=== PATIENT | male | born 1985 | race African-American/Black ===

== ENCOUNTER 2016-06-11 12:46 | Emergency (ER) | payer MEDICAID ==
[~2016-06-11] VITALS: Ht 175.3 cm; Wt 90.7 kg
[~2016-06-11 12:46] MED LIST: ALPR0.255 PO; LEVE500T6 PO; Rivaroxaban PO
[2016-06-11] MEDS ORDERED: ALBUTEROL FS 2.5 MG/3 ML VIAL.NEB ONE (13:22)
[2016-06-11] MEDS ORDERED: IPRATROPIUM NEB FS 0.5 MG/2.5 ML AMPUL.NEB ONE (13:22)
[2016-06-11] MEDS ORDERED: ALBUTEROL FS 2.5 MG/3 ML VIAL.NEB NEB ONE (13:30)
[2016-06-11] MEDS ORDERED: IPRATROPIUM NEB FS 0.5 MG/2.5 ML AMPUL.NEB NEB ONE (13:30)
[2016-06-11] MEDS ORDERED: predniSONE 20 MG TABLET PO ONE (13:30)
[2016-06-11 13:47] LABS: BASOPHILS # (AUTO) 0.1 /CMM (0.0-0.2); DIFF TOTAL % 100 %; EOSINOPHILS # (AUTO) 0.1 /CMM (0.0-0.7); HEMATOCRIT 46 % (39-51); HEMOGLOBIN 15.3 g/dL (13.5-17.5); LYMPHOCYTES # (AUTO) 1.9 /CMM (0.8-4.8); MEAN CORPUSCULAR HEMOGLOBIN 28 PG (26.0-33.0); MEAN CORPUSCULAR HGB CONC 33 g/dl (31.0-36.0); MEAN CORPUSCULAR VOLUME 84 fL (80-96); MONOCYTES # (AUTO) 0.4 /CMM (0.1-1.30); MONOCYTES % (AUTO) 6.9 % (2.0-12.0); NEUTROPHILS # (AUTO) 3.7 /CMM (1.8-8.9); NEUTROPHILS % (AUTO) 60.1 % (43.0-81.0); PLATELET COUNT (AUTO) 174 /CMM (150-450); RED BLOOD CELL COUNT(AUTO) 5.49 MIL/uL (4.5-6.0); WHITE BLOOD COUNT (AUTO) 6.2 K/uL (4.3-11.0)
[2016-06-11] MEDS ORDERED: predniSONE 20 MG TABLET ONE (13:50)
[2016-06-11 13:58] LABS: ANION GAP 11 (5-14); CARBON DIOXIDE 30 mmol/L (21-32); CHLORIDE 106 mmol/L (98-107); GFR 107 mL/min (>60); GLUCOSE 103 mg/dL (74-106); POTASSIUM 4.3 mmol/L (3.5-5.1); SODIUM SERUM 143 mmol/L (136-145); UREA NITROGEN, BLOOD 13 mg/dL (7-18)
[2016-06-11 14:05] LABS: TROPONIN I < 0.017 ng/mL (0.00-0.056)
[2016-06-11 14:57] VITALS: BP 124/89
== END 2016-06-11 14:58 | disposition home or self-care (01) ==
LOC: ER 12:48
DX: R07.89 Other chest pain (principal); J45.901 Unspecified asthma with (acute) exacerbation; R56.9 Unspecified convulsions; F41.9 Anxiety disorder, unspecified
CPT/HCPCS: 36415; 71010; 80048; 84484; 85025; 94640; 99285; A4606 ×3; J7512; Z7610 ×2

== ENCOUNTER 2017-04-15 00:27 | Emergency (ER) | payer MEDICAID, OTHER ==
[~2017-04-15] VITALS: Ht 185.4 cm; Wt 113.4 kg
[~2017-04-15 00:27] MED LIST changes: -LEVE500T6 PO; +LEVE500T9 PO
--- NOTE | 2017-04-15 00:45 | NUR ---
PT AMBULATORY TO ER BED 8, PT C/O SOB X 1 HOUR AND C/O MIDSTERNAL CP X 1 HOUR. VSS/RESP EVEN UNLABORED/NAD NOTED/SKIN WARM AND DRY/DENIES N/V. PT AOX4.
[2017-04-15] MEDS ORDERED: ACETAMINOPHEN ES 500 MG TABLET ONE (01:00)
[2017-04-15] MEDS ORDERED: ACETAMINOPHEN ES 500 MG TABLET PO ONE (01:00)
[2017-04-15 02:19] VITALS: BP 132/88
== END 2017-04-15 02:20 | disposition home or self-care (01) ==
LOC: ER 00:32
DX: F41.9 Anxiety disorder, unspecified (principal); T50.905A Adverse effect of unspecified drugs, medicaments and biological substances, initial encounter; J45.909 Unspecified asthma, uncomplicated; Z79.01 Long term (current) use of anticoagulants; Y92.89 Other specified places as the place of occurrence of the external cause
CPT/HCPCS: 71010; 93005; 99284; A4606; J7030; Z7610

== ENCOUNTER 2017-05-31 20:14 | Emergency (ER) | payer MEDICAID ==
[~2017-05-31] VITALS: Ht 185.4 cm; Wt 113.4 kg
[2017-05-31 20:26] VITALS: BP 124/72
== END 2017-05-31 20:54 | disposition home or self-care (01) ==
LOC: ER 20:20
DX: L25.8 Unspecified contact dermatitis due to other agents (principal); J45.909 Unspecified asthma, uncomplicated
CPT/HCPCS: 99283; A4606; Z7610

== ENCOUNTER 2017-07-29 16:01 | Emergency (ER) | payer MEDICAID ==
[~2017-07-29] VITALS: Ht 185.4 cm; Wt 108.9 kg
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
--- NOTE | 2017-07-29 16:30 | NUR ---
NEW IV STARTED ON LAC, 20 G. BLOOD DRAWN AND SENT TO LAB. EKG COMPLETED AT BEDSIDE WELL.
[2017-07-29 16:32] LABS: BASOPHILS # (AUTO) 0.2 /CMM (0.0-0.2); BASOPHILS % (AUTO) 2.6 % (0.0-2.0); EOSINOPHILS # (AUTO) 0.2 /CMM (0.0-0.7); EOSINOPHILS % (AUTO) 2.7 % (0.0-6.0); HEMATOCRIT 45 % (39-51); LYMPHOCYTES # (AUTO) 2.1 /CMM (0.8-4.8); LYMPHOCYTES % (AUTO) 28.6 % (20.0-44.0); MEAN CORPUSCULAR HEMOGLOBIN 28 PG (26.0-33.0); MEAN CORPUSCULAR HGB CONC 33 g/dl (31.0-36.0); MEAN CORPUSCULAR VOLUME 85 fL (80-96); MONOCYTES # (AUTO) 0.7 /CMM (0.1-1.30); MONOCYTES % (AUTO) 9.4 % (2.0-12.0); NEUTROPHILS # (AUTO) 4.2 /CMM (1.8-8.9); NEUTROPHILS % (AUTO) 56.7 % (43.0-81.0); PLATELET COUNT (AUTO) 172 /CMM (150-450); RDW COEFFICIENT OF VARIATION 13.7 (11.5-15.0); RED BLOOD CELL COUNT(AUTO) 5.31 MIL/uL (4.5-6.0); WHITE BLOOD COUNT (AUTO) 7.4 K/uL (4.3-11.0)
[2017-07-29 16:42] LABS: CALCIUM, SERUM 9.1 mg/dL (8.5-10.1); CARBON DIOXIDE 31 mmol/L (21-32); CHLORIDE 105 mmol/L (98-107); GLUCOSE 83 mg/dL (74-106); POTASSIUM 3.5 mmol/L (3.5-5.1); SODIUM SERUM 142 mmol/L (136-145); UREA NITROGEN, BLOOD 13 mg/dL (7-18)
[2017-07-29 16:50] LABS: TROPONIN I < 0.017 ng/mL (0.00-0.056)
[2017-07-29 16:54] LABS: B-TYPE NATRIURETIC PEPTIDE 152 PG/ML (0-125)
[2017-07-29] MEDS ORDERED: ACETAMINOPHEN ES 500 MG TABLET ONE (17:20)
[2017-07-29] MEDS ORDERED: ACETAMINOPHEN ES 500 MG TABLET PO ONE (17:30)
[2017-07-29 17:31] VITALS: BP 126/74
--- NOTE | 2017-07-29 17:55 | NUR ---
IV removed. Catheter intact and site benign. Pressure and 4x4 applied to site. No bleeding noted. Patient discharged to home in stable condition. Written and verbal after care instructions given. Patient verbalizes understanding of instruction.
== END 2017-07-29 17:55 | disposition home or self-care (01) ==
LOC: ER 16:03
DX: R07.9 Chest pain, unspecified (principal); F41.9 Anxiety disorder, unspecified; G40.909 Epilepsy, unspecified, not intractable, without status epilepticus; J45.909 Unspecified asthma, uncomplicated; Q21.0 Ventricular septal defect
CPT/HCPCS: 36415; 71045; 80048; 83880; 84484; 85025; 85378; 93005; 99285; A4606; Z7610

== ENCOUNTER 2017-09-04 19:26 | Emergency (ER) | payer MEDICAID, OTHER ==
[~2017-09-04] VITALS: Ht 177.8 cm; Wt 99.8 kg
[2017-09-04 21:15] VITALS: BP 134/79
--- NOTE | 2017-09-04 22:50 | NUR ---
BEDSIDE WITH PT.
== END 2017-09-04 23:24 | disposition home or self-care (01) ==
LOC: ER 19:29
DX: N48.1 Balanitis (principal); J45.909 Unspecified asthma, uncomplicated; G40.909 Epilepsy, unspecified, not intractable, without status epilepticus
CPT/HCPCS: 99282; A4606; Z7610

== ENCOUNTER 2017-11-03 22:41 | Emergency (ER) | payer MEDICAID, OTHER ==
[~2017-11-03] VITALS: Ht 185.4 cm; Wt 113.4 kg
[2017-11-03 22:47] VITALS: BP 118/80
[2017-11-04] MEDS ORDERED: DEXAMETHASONE SOD PHOSPHATE 4 MG/ML VIAL IM ONE
[2017-11-04] MEDS ORDERED: ALBUTEROL FS 2.5 MG/0.5 ML VIAL.NEB NEB ONE
[2017-11-04] MEDS ORDERED: IPRATROPIUM NEB FS 0.5 MG/2.5 ML AMPUL.NEB ONE (00:13)
[2017-11-04] MEDS ORDERED: ALBUTEROL FS 2.5 MG/0.5 ML VIAL.NEB ONE (00:13)
[2017-11-04] MEDS ORDERED: DEXAMETHASONE SOD PHOSPHATE 10 MG/ML VIAL ONE (00:29)
== END 2017-11-04 01:00 | disposition home or self-care (01) ==
LOC: ER 22:44
DX: J45.909 Unspecified asthma, uncomplicated (principal); J02.9 Acute pharyngitis, unspecified; F41.9 Anxiety disorder, unspecified; G40.909 Epilepsy, unspecified, not intractable, without status epilepticus; Z98.890 Other specified postprocedural states
CPT/HCPCS: 71045-TC; A4606; J1100; Z7610

== ENCOUNTER 2018-01-29 22:24 | Emergency (ER) | payer MEDICAID ==
[~2018-01-29] VITALS: Ht 193 cm; Wt 124.3 kg
[2018-01-29 22:27] VITALS: BP 120/86
[2018-01-29] MEDS ORDERED: IBUPROFEN 600 MG TABLET PO ONE ×2 (22:51→23:00)
== END 2018-01-29 23:20 | disposition home or self-care (01) ==
LOC: ER 22:25
DX: J03.90 Acute tonsillitis, unspecified (principal); J45.909 Unspecified asthma, uncomplicated; G40.909 Epilepsy, unspecified, not intractable, without status epilepticus; F41.9 Anxiety disorder, unspecified; Z98.890 Other specified postprocedural states; Z79.899 Other long term (current) drug therapy
CPT/HCPCS: 71045-TC; 86403-TC; 87070-TC; A4606; Z7610

== ENCOUNTER 2018-06-23 23:02 | Emergency (ER) | payer MEDICAID ==
[~2018-06-23] VITALS: Ht 185.4 cm; Wt 113.4 kg
--- NOTE | 2018-06-23 23:08 | NUR ---
BIB[facility]PARENTS C/O CHEST TIGHTNESS/SOB X 9 HOURS. PT STATES HE HAS ANXIETY. NOTED VERY ANXIOUS. A/OX4 AND ABLE TO VERBALIZE NEEDS. NOTED WITH NAUSEA AND VOMIT AT BEDSIDE. PUT ON MONITOR. VSS WNL. WAITING FOR MD PEREZ.
[2018-06-24] MEDS ORDERED: IV NS 0.9% 1,000 ML BAG IV ONE
[2018-06-24] MEDS ORDERED: ALBUTEROL FS 2.5 MG/3 ML VIAL.NEB NEB ONE
[2018-06-24] MEDS ORDERED: ONDANSETRON HCL/PF 4 MG/2 ML VIAL IVP ONE
[2018-06-24] MEDS ORDERED: IPRATROPIUM NEB FS 0.5 MG/2.5 ML AMPUL.NEB NEB ONE
--- NOTE | 2018-06-24 | NUR ---
ADDENDUM: INTRAVENOUS END TIME: NS 1 LITER WIDE OPEN; STRT TIME: 0000 AM; EMD TIME 0100 AM; PIV # 18 RAC
[2018-06-24 00:09] LABS: BASOPHILS % (AUTO) 0.5 % (0.0-2.0); EOSINOPHILS % (AUTO) 3.2 % (0.0-6.0); HEMATOCRIT 47 % (39-51); HEMOGLOBIN 15.7 g/dL (13.5-17.5); LYMPHOCYTES # (AUTO) 3.3 /CMM (0.8-4.8); LYMPHOCYTES % (AUTO) 42.2 % (20.0-44.0); MEAN CORPUSCULAR HGB CONC 33 g/dl (31.0-36.0); MEAN CORPUSCULAR VOLUME 85 fL (80-96); MONOCYTES # (AUTO) 0.6 /CMM (0.1-1.30); MONOCYTES % (AUTO) 7.7 % (2.0-12.0); NEUTROPHILS # (AUTO) 3.6 /CMM (1.8-8.9); NEUTROPHILS % (AUTO) 46.4 % (43.0-81.0); PLATELET COUNT (AUTO) 168 /CMM (150-450); RED BLOOD CELL COUNT(AUTO) 5.52 MIL/uL (4.5-6.0); WHITE BLOOD COUNT (AUTO) 7.8 K/uL (4.3-11.0)
[2018-06-24] MEDS ORDERED: ONDANSETRON HCL/PF 4 MG/2 ML VIAL ONE (00:20)
[2018-06-24] MEDS ORDERED: ALBUTEROL FS 2.5 MG/3 ML VIAL.NEB ONE (00:35)
[2018-06-24] MEDS ORDERED: IPRATROPIUM NEB FS 0.5 MG/2.5 ML AMPUL.NEB ONE (00:35)
[2018-06-24 01:02] LABS: ALANINE AMINOTRANSFERASE 33 U/L (12-78); ALBUMIN 3.7 g/dL (3.4-5.0); ALKALINE PHOSPHATASE 60 U/L (46-116); ASPARTATE AMINOTRANSFERASE 22 U/L (15-37); BILIRUBIN,DIRECT 0.1 mg/dL (0.0-0.2); BILIRUBIN,TOTAL 0.7 mg/dL (0.2-1.0); CARBON DIOXIDE 24 mmol/L (21-32); CHLORIDE 108 mmol/L (98-107); CREATININE 0.9 mg/dL (0.6-1.3); GLUCOSE 110 mg/dL (74-106); POTASSIUM 3.7 mmol/L (3.5-5.1); SODIUM SERUM 143 mmol/L (136-145); TOTAL PROTEIN, SERUM 7.6 g/dL (6.4-8.2); UREA NITROGEN, BLOOD 17 mg/dL (7-18)
[2018-06-24] MEDS ORDERED: MECLIZINE HCL 12.5 MG TABLET PO ONE (02:00)
[2018-06-24] MEDS ORDERED: MECLIZINE HCL 25 MG TABLET ONE (02:18)
--- NOTE | 2018-06-24 03:00 | NUR ---
THE PATIENT WAS ABLE TO AMBULATE; STEADY GAIT; NO DIZZINESS NOTED
--- NOTE | 2018-06-24 03:15 | NUR ---
IV removed. Catheter intact and site benign. Pressure and 4x4 applied to site. No bleeding noted.
--- NOTE | 2018-06-24 03:19 | NUR ---
Patient discharged to home in stable condition. Written and verbal after care instructions given. Patient verbalizes understanding of instruction.
[2018-06-24 03:21] VITALS: BP 129/85
== END 2018-06-24 03:22 | disposition home or self-care (01) ==
LOC: ER 23:06
DX: J45.901 Unspecified asthma with (acute) exacerbation (principal); R42 Dizziness and giddiness; F41.9 Anxiety disorder, unspecified; G40.909 Epilepsy, unspecified, not intractable, without status epilepticus; Q21.0 Ventricular septal defect; Z98.890 Other specified postprocedural states
CPT/HCPCS: 36415; 71045-TC; 80048-TC; 80076-TC; 84484-TC; 85025-TC; J2405; J7030; J8597

== ENCOUNTER 2019-01-06 14:27 | Emergency (ER) | payer MEDICAID ==
[~2019-01-06] VITALS: Ht 185.4 cm; Wt 117.9 kg
--- NOTE | 2019-01-06 14:53 | NUR ---
RECEIVED PT IN ROOM ER #2, PT IS A/Ox4, PT'S GRANDMOTHER STATED PT HAD SEIZURE AT HOME, VSS STABLE, CONTINUE TO MONTIOR
[2019-01-06 15:28] LABS: BASOPHILS # (AUTO) 0.1 /CMM (0.0-0.2); BASOPHILS % (AUTO) 0.5 % (0.0-2.0); EOSINOPHILS % (AUTO) 0.3 % (0.0-6.0); HEMATOCRIT 43 % (39-51); HEMOGLOBIN 14.2 g/dL (13.5-17.5); LYMPHOCYTES # (AUTO) 0.6 /CMM (0.8-4.8); MEAN CORPUSCULAR HGB CONC 33 g/dl (31.0-36.0); MEAN CORPUSCULAR VOLUME 86 fL (80-96); MONOCYTES # (AUTO) 0.9 /CMM (0.1-1.30); MONOCYTES % (AUTO) 8.2 % (2.0-12.0); NEUTROPHILS # (AUTO) 9.5 /CMM (1.8-8.9); PLATELET COUNT (AUTO) 159 /CMM (150-450); RED BLOOD CELL COUNT(AUTO) 4.97 MIL/uL (4.5-6.0); WHITE BLOOD COUNT (AUTO) 11.1 K/uL (4.3-11.0)
[2019-01-06] MEDS ORDERED: IV NS 0.9% 1,000 ML BAG IV ONE (15:30)
[2019-01-06 15:54] LABS: CALCIUM, SERUM 8.9 mg/dL (8.5-10.1); CREATININE 1.1 mg/dL (0.6-1.3); POTASSIUM 4.1 mmol/L (3.5-5.1)
[2019-01-06 16:02] LABS: ALBUMIN 3.5 g/dL (3.4-5.0); BILIRUBIN,DIRECT 0.1 mg/dL (0.0-0.2); TOTAL PROTEIN, SERUM 7.1 g/dL (6.4-8.2)
--- NOTE | 2019-01-06 16:48 | NUR ---
Patient discharged to home in stable condition. Written and verbal after care instructions given. Patient verbalizes understanding of instruction.IV removed. Pressure and 4x4 applied to site. No bleeding noted.PT left the ER ambulatory with a steady gait.
[2019-01-06 16:51] VITALS: BP 120/61
== END 2019-01-06 16:40 | disposition home or self-care (01) ==
LOC: ER 14:30
DX: R55 Syncope and collapse (principal); E86.0 Dehydration; J45.909 Unspecified asthma, uncomplicated; E78.00 Pure hypercholesterolemia, unspecified; F41.9 Anxiety disorder, unspecified; Z98.890 Other specified postprocedural states; Z79.899 Other long term (current) drug therapy
CPT/HCPCS: 36415; 80048; 80076; 82550; 82962; 85025; 96360; 99283; J7030

== ENCOUNTER 2019-05-10 14:08 | Emergency (ER) | payer MEDICAID ==
[~2019-05-10] VITALS: Ht 185.4 cm; Wt 127.0 kg
[2019-05-10 14:43] VITALS: BP 134/74
== END 2019-05-10 15:27 | disposition home or self-care (01) ==
LOC: ER 14:11
DX: S80.211A Abrasion, right knee, initial encounter (principal); J45.909 Unspecified asthma, uncomplicated; F41.9 Anxiety disorder, unspecified; G40.909 Epilepsy, unspecified, not intractable, without status epilepticus; Z98.890 Other specified postprocedural states; Z79.899 Other long term (current) drug therapy; W19.XXXA Unspecified fall, initial encounter; Y93.01 Activity, walking, marching and hiking; Y92.89 Other specified places as the place of occurrence of the external cause; Y99.8 Other external cause status
CPT/HCPCS: 73564-TC

== ENCOUNTER 2021-02-20 22:12 | Emergency (ER) | payer MEDICAID ==
[~2021-02-20] VITALS: Ht 185.4 cm; Wt 104.3 kg
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
[2021-02-20] MEDS ORDERED: KETOROLAC TROMETHAMINE INJ 30 MG/ML VIAL ONE (22:40)
[2021-02-20] MEDS ORDERED: CYCLOBENZAPRINE 10 MG TABLET ONE (22:40)
[2021-02-20] MEDS ORDERED: KETOROLAC TROMETHAMINE INJ 30 MG/ML VIAL IM ONE (23:00)
[2021-02-20] MEDS ORDERED: CYCLOBENZAPRINE 10 MG TABLET PO ONE (23:00)
[2021-02-21] MEDS ORDERED: CYCL5TAB PO (00:24)
[2021-02-21 00:51] VITALS: BP 124/76
--- NOTE | 2021-02-21 00:51 | NUR ---
Patient discharged to home in stable condition. Written and verbal after care instructions given. Patient verbalizes understanding of instruction. Ambulated without difficulty.
== END 2021-02-21 00:52 | disposition home or self-care (01) ==
LOC: ER 22:14
DX: S93.492A Sprain of other ligament of left ankle, initial encounter (principal); S29.012A Strain of muscle and tendon of back wall of thorax, initial encounter; S39.012A Strain of muscle, fascia and tendon of lower back, initial encounter; J45.909 Unspecified asthma, uncomplicated; F41.9 Anxiety disorder, unspecified; G40.909 Epilepsy, unspecified, not intractable, without status epilepticus; Z98.890 Other specified postprocedural states; Z79.899 Other long term (current) drug therapy; V49.69XA Unspecified car occupant injured in collision with other motor vehicles in traffic accident, initial encounter; Y93.89 Activity, other specified; Y92.413 State road as the place of occurrence of the external cause; Y99.8 Other external cause status
CPT/HCPCS: 72128; 72131; 73610; 96372; 99285; J1885

== ENCOUNTER 2021-03-10 13:19 | Emergency (ER) | payer MEDICAID ==
[~2021-03-10] VITALS: Ht 185.4 cm; Wt 117.9 kg
[~2021-03-10 13:19] MED LIST changes: +CYCL5TAB PO
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
--- NOTE | 2021-03-10 13:47 | NUR ---
FAMILY AT BEDSIDE
[2021-03-10] MEDS ORDERED: CYCLOBENZAPRINE 10 MG TABLET ONE (14:36)
[2021-03-10] MEDS ORDERED: KETOROLAC TROMETHAMINE INJ 30 MG/ML VIAL ONE (14:36)
[2021-03-10] MEDS: KETOROLAC TROMETHAMINE INJ 30 MG/ML VIAL IM ONE (14:41)
[2021-03-10] MEDS: CYCLOBENZAPRINE 10 MG TABLET PO ONE (14:41)
--- NOTE | 2021-03-10 15:39 | NUR ---
DR PETERS AT BEDSIDE
[2021-03-10] MEDS ORDERED: CYCL5TAB PO (15:44)
[2021-03-10] MEDS ORDERED: IBUP-1957 PO (15:44)
--- NOTE | 2021-03-10 15:52 | NUR ---
Patient discharged to home in stable condition. Written and verbal after care instructions given. Patient verbalizes understanding of instruction.
[2021-03-10 15:53] VITALS: BP 136/89
== END 2021-03-10 15:53 | disposition home or self-care (01) ==
LOC: ER 13:25
DX: S29.012A Strain of muscle and tendon of back wall of thorax, initial encounter (principal); S39.012A Strain of muscle, fascia and tendon of lower back, initial encounter; J45.909 Unspecified asthma, uncomplicated; F41.9 Anxiety disorder, unspecified; G40.909 Epilepsy, unspecified, not intractable, without status epilepticus; Z98.890 Other specified postprocedural states; Z79.899 Other long term (current) drug therapy; X58.XXXA Exposure to other specified factors, initial encounter; Y93.89 Activity, other specified; Y92.89 Other specified places as the place of occurrence of the external cause; Y99.8 Other external cause status
CPT/HCPCS: 96372; 99283; J1885

== ENCOUNTER 2023-10-11 14:53 | Emergency (ER) | payer MEDICAID ==
[~2023-10-11] VITALS: Ht 185.4 cm; Wt 136.1 kg
[~2023-10-11 14:53] MED LIST changes: +IBUP-1957 PO
[2023-10-11 15:07] VITALS: TEMP 98.2
[2023-10-11] MEDS: IV NS 0.9% 1,000 ML BAG IV ONE (15:35)
[2023-10-11] MEDS ORDERED: diphenhydrAMINE HCL 50 MG/ML VIAL ONE (15:37)
[2023-10-11] MEDS ORDERED: METOCLOPRAMIDE HCL 10 MG/2 ML VIAL ONE (15:37)
[2023-10-11] MEDS ORDERED: KETOROLAC TROMETHAMINE 15 MG/ML VIAL ONE (15:37)
[2023-10-11] MEDS ORDERED: ACETAMINOPHEN ES 500 MG TABLET ONE (15:37)
[2023-10-11] MEDS: diphenhydrAMINE HCL 50 MG/ML VIAL IV ONE (15:38)
[2023-10-11] MEDS: METOCLOPRAMIDE HCL 10 MG/2 ML VIAL IV ONE (15:38)
[2023-10-11] MEDS: KETOROLAC TROMETHAMINE 15 MG/ML VIAL IV ONE (15:39)
[2023-10-11] MEDS: ACETAMINOPHEN ES 500 MG TABLET PO ONE (15:39)
[2023-10-11 16:55] VITALS: BP 127/88; O2SAT 99
== END 2023-10-11 16:56 | disposition home or self-care (01) ==
LOC: ER 15:04
DX: G43.809 Other migraine, not intractable, without status migrainosus (principal); G40.909 Epilepsy, unspecified, not intractable, without status epilepticus; J45.909 Unspecified asthma, uncomplicated; F41.9 Anxiety disorder, unspecified; Z86.79 Personal history of other diseases of the circulatory system
CPT/HCPCS: 99284; 96374; 96375 ×2; J1200; J2765; J7030; J1885

== ENCOUNTER 2024-05-04 16:35 | Emergency (ER) | payer MEDICAID ==
[~2024-05-04] VITALS: Ht 185.4 cm; Wt 133.8 kg
[2024-05-04 16:36] VITALS: TEMP 98.4
[2024-05-04] MEDS ORDERED: IBUPROFEN 600 MG TABLET ONE (17:12)
[2024-05-04] MEDS: IBUPROFEN 600 MG TABLET PO ONE (17:14)
[2024-05-04] MEDS ORDERED: IBUP-1953 PO (17:37)
[2024-05-04 18:15] VITALS: BP 118/70; O2SAT 100
== END 2024-05-04 18:15 | disposition home or self-care (01) ==
LOC: ER 16:40
DX: S80.01XA Contusion of right knee, initial encounter (principal); F41.9 Anxiety disorder, unspecified; J45.909 Unspecified asthma, uncomplicated; Z79.1 Long term (current) use of non-steroidal anti-inflammatories (NSAID); Z87.820 Personal history of traumatic brain injury; W01.198A Fall on same level from slipping, tripping and stumbling with subsequent striking against other object, initial encounter; Y93.89 Activity, other specified; Y92.89 Other specified places as the place of occurrence of the external cause; Y99.8 Other external cause status
CPT/HCPCS: 73562

== ENCOUNTER 2024-07-22 07:22 | Emergency (ER) | payer MEDICAID ==
[~2024-07-22] VITALS: Ht 185.4 cm; Wt 136.1 kg
[~2024-07-22 07:22] MED LIST changes: +IBUP-1953 PO
[2024-07-22] MEDS ORDERED: NAPR-1164 PO (08:00)
[2024-07-22] MEDS ORDERED: KETOROLAC TROMETHAMINE 15 MG/ML VIAL ONE (08:08)
[2024-07-22] MEDS: KETOROLAC TROMETHAMINE 15 MG/ML VIAL IM ONE (08:14)
[2024-07-22 08:40] VITALS: BP 122/70; TEMP 98.6; O2SAT 96
== END 2024-07-22 08:41 | disposition home or self-care (01) ==
LOC: ER 07:26
DX: M76.71 Peroneal tendinitis, right leg (principal); J45.909 Unspecified asthma, uncomplicated; F41.9 Anxiety disorder, unspecified; Z79.1 Long term (current) use of non-steroidal anti-inflammatories (NSAID); Z79.899 Other long term (current) drug therapy
CPT/HCPCS: 99283; 96372; 73610; J1885

== ENCOUNTER 2024-07-26 08:28 | Emergency (ER) | payer MEDICAID ==
[~2024-07-26] VITALS: Ht 185.4 cm; Wt 136.1 kg
[~2024-07-26 08:28] MED LIST changes: +NAPR-1164 PO
[2024-07-26 08:34] VITALS: BP 117/79; TEMP 97.9
[2024-07-26] MEDS ORDERED: LIDOCAINE 5% (PATCH) 1 EA PATCH TP ONE (08:57)
[2024-07-26] MEDS ORDERED: oxyCODONE/APAP (5/325 MG) 1 UDTAB TABLET ONE (08:58)
[2024-07-26] MEDS: LIDOCAINE 5% (PATCH) 1 EA PATCH TP ONE (09:08)
[2024-07-26] MEDS: oxyCODONE/APAP (5/325 MG) 1 UDTAB TABLET PO ONE (09:08)
[2024-07-26] MEDS ORDERED: OXYC-128 PO (10:37)
[2024-07-26] MEDS ORDERED: LIDO30AD10 TP (10:37)
[2024-07-26 10:45] VITALS: O2SAT 98
== END 2024-07-26 10:46 | disposition home or self-care (01) ==
LOC: ER 08:28
DX: M25.571 Pain in right ankle and joints of right foot (principal); M79.604 Pain in right leg; E66.9 Obesity, unspecified; G40.909 Epilepsy, unspecified, not intractable, without status epilepticus; G43.909 Migraine, unspecified, not intractable, without status migrainosus; E78.5 Hyperlipidemia, unspecified; F41.9 Anxiety disorder, unspecified; J45.909 Unspecified asthma, uncomplicated; Z79.1 Long term (current) use of non-steroidal anti-inflammatories (NSAID); Z79.899 Other long term (current) drug therapy; Z68.39 Body mass index [BMI] 39.0-39.9, adult
CPT/HCPCS: 93971-TC

== ENCOUNTER 2024-07-29 04:11 | Emergency (ER) | payer MEDICAID ==
[~2024-07-29] VITALS: Ht 185.4 cm; Wt 136.1 kg
[~2024-07-29 04:11] MED LIST changes: +LIDO30AD10 TP; +OXYC-128 PO
[2024-07-29] MEDS ORDERED: IBUP-1957 PO (04:35)
[2024-07-29] MEDS ORDERED: KETOROLAC TROMETHAMINE INJ 30 MG/ML VIAL ONE (05:01)
[2024-07-29] MEDS: KETOROLAC TROMETHAMINE INJ 30 MG/ML VIAL IM ONE (05:04)
[2024-07-29 05:05] VITALS: BP 129/89; TEMP 98.3; O2SAT 98
== END 2024-07-29 05:05 | disposition home or self-care (01) ==
LOC: ER 04:11
DX: M25.571 Pain in right ankle and joints of right foot (principal); F41.9 Anxiety disorder, unspecified; J45.909 Unspecified asthma, uncomplicated; Z79.1 Long term (current) use of non-steroidal anti-inflammatories (NSAID); Z79.899 Other long term (current) drug therapy
CPT/HCPCS: 99283; 96372; J1885

== ENCOUNTER 2024-09-14 22:51 | Emergency (ER) | payer MEDICAID ==
[~2024-09-14] VITALS: Ht 185.4 cm; Wt 136.1 kg
[2024-09-14 23:53] VITALS: BP 131/85; TEMP 99.1; O2SAT 98
[2024-09-15] MEDS ORDERED: KETOROLAC TROMETHAMINE 15 MG/ML VIAL ONE (00:19)
[2024-09-15] MEDS: KETOROLAC TROMETHAMINE 15 MG/ML VIAL IM ONE (00:25)
== END 2024-09-15 02:09 | disposition home or self-care (01) ==
LOC: ER 22:55
DX: S90.32XA Contusion of left foot, initial encounter (principal); F41.9 Anxiety disorder, unspecified; G43.909 Migraine, unspecified, not intractable, without status migrainosus; J45.909 Unspecified asthma, uncomplicated; Z79.1 Long term (current) use of non-steroidal anti-inflammatories (NSAID); Z79.899 Other long term (current) drug therapy; W22.01XA Walked into wall, initial encounter; Y93.89 Activity, other specified; Y92.89 Other specified places as the place of occurrence of the external cause; Y99.8 Other external cause status
CPT/HCPCS: 99284; 96372; 73630; 73660; J1885

== ENCOUNTER 2024-12-29 02:23 | Emergency (ER) | payer MEDICAID ==
[~2024-12-29] VITALS: Ht 182.9 cm; Wt 136.1 kg
[2024-12-29] MEDS ORDERED: ACET-2030 PO (03:14)
[2024-12-29] MEDS ORDERED: ACETAMINOPHEN ES 500 MG TABLET ONE (03:17)
[2024-12-29] MEDS: ACETAMINOPHEN ES 500 MG TABLET PO ONE (03:18)
[2024-12-29 03:29] VITALS: BP 130/75; TEMP 98; O2SAT 99
== END 2024-12-29 03:31 | disposition home or self-care (01) ==
LOC: ER 02:26
DX: M79.5 Residual foreign body in soft tissue (principal); F41.9 Anxiety disorder, unspecified; J45.909 Unspecified asthma, uncomplicated; Z79.1 Long term (current) use of non-steroidal anti-inflammatories (NSAID); Z79.899 Other long term (current) drug therapy
CPT/HCPCS: 99284; A6403